=== PATIENT | female | born 1955 | race Caucasian/White ===

== ENCOUNTER 2024-04-11 13:27 | Inpatient (IN) | payer OTHER ==
[~2024-04-11] VITALS: Ht 165.1 cm; Wt 127.0 kg
[2024-04-11 13:40] VITALS: BP 167/80; PULSE 133; RESP 24; TEMP 97.3; O2SAT 96
[2024-04-11 13:46] LABS: EOSINOPHILS % (AUTO) 0.1 % (0.0-4.0); HEMATOCRIT 37.8 % (36-48); HEMOGLOBIN 12.8 g/dL (12.0-16.0); LYMPHOCYTES # (AUTO) 0.4 K/uL (2.5-16.5); LYMPHOCYTES % (AUTO) 2.6 % (20.5-51.1); MEAN CORPUSCULAR HEMOGLOBIN 33 pg (27-31); MEAN CORPUSCULAR HGB CONC 34 g/dL (33-37); MEAN CORPUSCULAR VOLUME 97.7 fL (80-94); MONOCYTES # (AUTO) 0.7 K/uL (0.8-1.0); MONOCYTES % (AUTO) 4.3 % (1.7-9.3); NEUTROPHILS # (AUTO) 16.1 K/uL (1.8-7.7); PLATELET COUNT (AUTO) 81 K/uL (140-450); RED BLOOD CELL COUNT(AUTO) 3.87 MIL/uL (4.20-5.40); RED CELL DISTRIBUTION WIDTH 15.6 % (11.6-13.7); WHITE BLOOD COUNT (AUTO) 17.3 K/uL (4.8-10.8)
[2024-04-11] MEDS: ONDANSETRON 4 MG/2 ML VIAL IVP ONE (13:50)
[2024-04-11 14:01] LABS: ANION GAP 15.4 (8-16); CALCIUM 8.8 mg/dL (8.5-10.1); CREATININE 1.3 mg/dL (0.6-1.3); POTASSIUM 4.4 mmol/L (3.5-5.1)
[2024-04-11 14:10] LABS: ALANINE AMINOTRANSFERASE 28 U/L (12-78); ALKALINE PHOSPHATASE 83 U/L (50-136); ASPARTATE AMINOTRANSFERASE 53 U/L (15-37); BILIRUBIN,DIRECT 0.7 mg/dL (0.0-0.3); TOTAL BILIRUBIN 1.9 mg/dL (0.0-1.0); TOTAL PROTEIN, SERUM 7.8 g/dL (6.4-8.2)
[2024-04-11 14:12] LABS: INR 1.17 (0.8-1.2); PARTIAL THROMBOPLASTIN TIME 28.2 secs (22-35.6); PROTHROMBIN TIME 12.2 secs (10.8-13.4)
[2024-04-11] MEDS ORDERED: VANCOMYCIN 1,000 MG VIAL ONE (14:34)
[2024-04-11 14:41] LABS: LACTIC ACID 3.5 mmol/L (0.4-2.0)
[2024-04-11] MEDS: LORazepam 2 MG/ML VIAL IVP ONE (14:42)
[2024-04-11] MEDS: MORPHINE SULFATE 4 MG/ML SYR IVP ONE (14:44)
[2024-04-11] MEDS: NACL 0.9% 1,000 ML IV SCH ×2 (14:47→15:20)
[2024-04-11 14:51] LABS: APPEARANCE,URINE CLEAR (CLEAR); BILIRUBIN,URINE NEGATIVE (NEGATIVE); BLOOD, URINE NEGATIVE (NEGATIVE); COLOR,URINE YELLOW (YELLOW); LEUKOCYTE ESTERASE ,URINE 1+ (NEGATIVE); NITRITE, URINE NEGATIVE (NEGATIVE); PROTEIN,URINE 1+ (NEGATIVE); UGLUCOSE NEGATIVE (NEGATIVE); UROBILINOGEN,URINE 0.2 EU/dL (0.2 - 1)
[2024-04-11] MEDS: VANCOMYCIN 1,000 MG in DEXTROSE 5% 250 ML IV ONE (15:03)
[2024-04-11 15:13] LABS: FLU A ANTIGEN negative (NEGATIVE); FLU B ANTIGEN NEGATIVE (NEGATIVE)
[2024-04-11 15:15] LABS: BACTERIA,URINE FEW /HPF (None Seen); RBC,URINE 0-5 /HPF (0-5)
[2024-04-11] MEDS ORDERED: ONDANSETRON 4 MG/2 ML VIAL IVP PRN (15:20)
[2024-04-11 19:00] VITALS: PULSE 95; RESP 18; O2SAT 94
[2024-04-11 20:00] VITALS: BP 112/55; PULSE 95; PULSE 96; RESP 18; TEMP 98.8; O2SAT 94
[2024-04-12] VITALS: BP 128/70; PULSE 81; PULSE 89; RESP 18; TEMP 97.1; O2SAT 97
[2024-04-12 04:00] VITALS: BP 141/60; PULSE 82; PULSE 96; RESP 18; TEMP 98.3; O2SAT 97
[2024-04-12] MEDS: VANCOMYCIN 1GM/DEXT 5% PREMIX 200 ML IV ONE (04:45)
[2024-04-12 06:42] LABS: BASOPHILS % (AUTO) 0.2 % (0.0-2.0); HEMATOCRIT 34.2 % (36-48); HEMOGLOBIN 11.7 g/dL (12.0-16.0); LYMPHOCYTES % (AUTO) 6.7 % (20.5-51.1); MEAN CORPUSCULAR HEMOGLOBIN 34 pg (27-31); MEAN CORPUSCULAR HGB CONC 34 g/dL (33-37); MEAN CORPUSCULAR VOLUME 98.7 fL (80-94); MONOCYTES # (AUTO) 0.8 K/uL (0.8-1.0); MONOCYTES % (AUTO) 5.4 % (1.7-9.3); NEUTROPHILS # (AUTO) 13.7 K/uL (1.8-7.7); NEUTROPHILS % (AUTO) 87.7 % (42.2-75.2); PLATELET COUNT (AUTO) 79 K/uL (140-450); RED BLOOD CELL COUNT(AUTO) 3.47 MIL/uL (4.20-5.40); RED CELL DISTRIBUTION WIDTH 15.5 % (11.6-13.7); WHITE BLOOD COUNT (AUTO) 15.6 K/uL (4.8-10.8)
[2024-04-12 06:43] LABS: ALBUMIN 2.5 g/dL (3.4-5.0); ANION GAP 14.3 (8-16); CALCIUM 8.2 mg/dL (8.5-10.1); CREATININE 1.2 mg/dL (0.6-1.3); POTASSIUM 4.3 mmol/L (3.5-5.1); TOTAL BILIRUBIN 1.8 mg/dL (0.0-1.0); TOTAL PROTEIN, SERUM 6.7 g/dL (6.4-8.2)
[2024-04-12 08:00] VITALS: BP 119/40; PULSE 72; PULSE 74; RESP 18; TEMP 97.1; O2SAT 98
[2024-04-12] MEDS: DOCUSATE SODIUM 100 MG GELCAP PO SCH (09:49)
[2024-04-12] MEDS: PANTOPRAZOLE 40 MG INJ VIAL IVP SCH (09:49)
[2024-04-12] MEDS: HYDROcodone/APAP 5/325 MG 1 TAB TAB PO PRN (11:11)
[2024-04-12 12:00] VITALS: BP 125/39; PULSE 80; RESP 18; TEMP 97.2; O2SAT 96
[2024-04-12 16:00] VITALS: BP 116/50; PULSE 76; PULSE 85; RESP 18; TEMP 98; O2SAT 97
[2024-04-12 20:00] VITALS: BP 138/53; PULSE 74; PULSE 84; PULSE 88; RESP 18; RESP 19; TEMP 98.6; O2SAT 95
[2024-04-12] MEDS ORDERED: VANCOMYCIN PER PHARMACY MC PRN (23:05)
[2024-04-12] MEDS: ZOLPIDEM 5 MG TAB PO PRN (23:07)
[2024-04-12] MEDS ORDERED: DEXTROSE 50% 50 ML SYR IVP PRN (23:10)
[2024-04-12] MEDS ORDERED: INSULIN LISPRO SLIDING SCALE 100 UNITS/ML VIAL SUBQ PRN (23:10)
[2024-04-13] VITALS: BP 137/57; PULSE 76; PULSE 82; RESP 18; TEMP 98.5; O2SAT 94
[2024-04-13] MEDS: cefTRIAXone 1,000 MG VIAL ONE (03:13)
[2024-04-13 04:00] VITALS: BP 157/72; PULSE 83; RESP 19; TEMP 98; O2SAT 95
[2024-04-13] MEDS: VANCOMYCIN 1,000 MG VIAL ONE (04:45)
[2024-04-13 05:27] LABS: BASOPHILS % (AUTO) 0.3 % (0.0-2.0); EOSINOPHILS # (AUTO) 0.1 K/uL (0-0.4); EOSINOPHILS % (AUTO) 1.4 % (0.0-4.0); HEMOGLOBIN 11.3 g/dL (12.0-16.0); LYMPHOCYTES % (AUTO) 13.2 % (20.5-51.1); MEAN CORPUSCULAR HEMOGLOBIN 34 pg (27-31); MEAN CORPUSCULAR HGB CONC 34 g/dL (33-37); MEAN CORPUSCULAR VOLUME 99.1 fL (80-94); MONOCYTES # (AUTO) 0.6 K/uL (0.8-1.0); MONOCYTES % (AUTO) 8.1 % (1.7-9.3); NEUTROPHILS # (AUTO) 5.9 K/uL (1.8-7.7); PLATELET COUNT (AUTO) 72 K/uL (140-450); RED BLOOD CELL COUNT(AUTO) 3.33 MIL/uL (4.20-5.40); RED CELL DISTRIBUTION WIDTH 15.6 % (11.6-13.7); WHITE BLOOD COUNT (AUTO) 7.7 K/uL (4.8-10.8)
[2024-04-13 06:30] LABS: ALBUMIN 2.4 g/dL (3.4-5.0); ANION GAP 12.7 (8-16); CALCIUM 8.2 mg/dL (8.5-10.1); CARBON DIOXIDE 24.2 mmol/L (21-32); CREATININE 1.1 mg/dL (0.6-1.3); POTASSIUM 3.9 mmol/L (3.5-5.1); TOTAL BILIRUBIN 1.7 mg/dL (0.0-1.0); TOTAL PROTEIN, SERUM 6.7 g/dL (6.4-8.2)
[2024-04-13] MEDS: BLOOD GLUCOSE MONITORING 1 DEV DEV FS SCH (06:37)
[2024-04-13 08:00] VITALS: BP 124/48; PULSE 70; PULSE 75; RESP 18; TEMP 97.2; O2SAT 94; O2SAT 98
[2024-04-13 12:00] VITALS: BP 116/52; PULSE 69; RESP 18; TEMP 97.6; O2SAT 93
[2024-04-13 16:00] VITALS: BP 154/69; PULSE 79; RESP 18; TEMP 97.9; O2SAT 96
[2024-04-13] MEDS ORDERED: NON ADHERENT DRESSING TP PRN (17:30)
[2024-04-13] MEDS: VANCOMYCIN 1.25GM PREMIX 250 ML IV SCH (17:45)
[2024-04-13 20:00] VITALS: BP 149/54; PULSE 77; RESP 18; TEMP 98; O2SAT 96
[2024-04-14 04:00] VITALS: BP 141/62; PULSE 84; RESP 18; TEMP 96.8; O2SAT 95
[2024-04-14 05:51] LABS: BASOPHILS % (AUTO) 0.3 % (0.0-2.0); EOSINOPHILS # (AUTO) 0.2 K/uL (0-0.4); EOSINOPHILS % (AUTO) 3.4 % (0.0-4.0); HEMATOCRIT 30.4 % (36-48); HEMOGLOBIN 10.6 g/dL (12.0-16.0); LYMPHOCYTES # (AUTO) 0.8 K/uL (2.5-16.5); LYMPHOCYTES % (AUTO) 18.2 % (20.5-51.1); MEAN CORPUSCULAR HEMOGLOBIN 34 pg (27-31); MEAN CORPUSCULAR HGB CONC 35 g/dL (33-37); MEAN CORPUSCULAR VOLUME 97.5 fL (80-94); MONOCYTES # (AUTO) 0.5 K/uL (0.8-1.0); MONOCYTES % (AUTO) 10.6 % (1.7-9.3); NEUTROPHILS % (AUTO) 67.5 % (42.2-75.2); PLATELET COUNT (AUTO) 83 K/uL (140-450); RED BLOOD CELL COUNT(AUTO) 3.12 MIL/uL (4.20-5.40); RED CELL DISTRIBUTION WIDTH 15.4 % (11.6-13.7); WHITE BLOOD COUNT (AUTO) 4.4 K/uL (4.8-10.8)
[2024-04-14 06:10] LABS: ALBUMIN 2.3 g/dL (3.4-5.0); ANION GAP 13.3 (8-16); CALCIUM 8.1 mg/dL (8.5-10.1); CARBON DIOXIDE 22.6 mmol/L (21-32); CREATININE 0.9 mg/dL (0.6-1.3); POTASSIUM 3.9 mmol/L (3.5-5.1); TOTAL BILIRUBIN 1.1 mg/dL (0.0-1.0); TOTAL PROTEIN, SERUM 6.6 g/dL (6.4-8.2)
[2024-04-14 08:00] VITALS: BP 123/52; PULSE 73; RESP 18; TEMP 98.2; O2SAT 94; O2SAT 96
[2024-04-14] MEDS: GABAPENTIN 100 MG CAP PO SCH (09:58)
[2024-04-14 12:00] VITALS: BP 124/67; PULSE 84; RESP 18; TEMP 97.5; O2SAT 95
[2024-04-14] MEDS: NON ADHERENT DRESSING TP SCH (13:00)
[2024-04-14 16:00] VITALS: BP 140/67; PULSE 84; RESP 18; TEMP 98.2; O2SAT 95
[2024-04-14] MEDS: Z-GUARD PASTE TP ONE (16:54)
[2024-04-14 20:00] VITALS: BP 134/55; PULSE 86; RESP 18; TEMP 97.7; O2SAT 96
[2024-04-14] MEDS: cefTAZidime 2,000 MG in DEXTROSE 5% 100 ML IV SCH (21:35)
[2024-04-14] MEDS: cefTRIAXone 2,000 MG VIAL ONE (22:33)
[2024-04-15 04:00] VITALS: BP 152/67; PULSE 78; RESP 18; TEMP 96.8; O2SAT 96
[2024-04-15 05:11] LABS: BASOPHILS % (AUTO) 0.3 % (0.0-2.0); EOSINOPHILS # (AUTO) 0.2 K/uL (0-0.4); EOSINOPHILS % (AUTO) 4.5 % (0.0-4.0); HEMATOCRIT 30.2 % (36-48); HEMOGLOBIN 10.5 g/dL (12.0-16.0); LYMPHOCYTES # (AUTO) 0.7 K/uL (2.5-16.5); LYMPHOCYTES % (AUTO) 19.9 % (20.5-51.1); MEAN CORPUSCULAR HEMOGLOBIN 34 pg (27-31); MEAN CORPUSCULAR HGB CONC 35 g/dL (33-37); MEAN CORPUSCULAR VOLUME 97.3 fL (80-94); MONOCYTES # (AUTO) 0.5 K/uL (0.8-1.0); MONOCYTES % (AUTO) 14.4 % (1.7-9.3); NEUTROPHILS # (AUTO) 2.3 K/uL (1.8-7.7); NEUTROPHILS % (AUTO) 60.9 % (42.2-75.2); PLATELET COUNT (AUTO) 91 K/uL (140-450); WHITE BLOOD COUNT (AUTO) 3.7 K/uL (4.8-10.8)
[2024-04-15 05:47] LABS: ALBUMIN 2.2 g/dL (3.4-5.0); ANION GAP 13.1 (8-16); CARBON DIOXIDE 21.8 mmol/L (21-32); CREATININE 0.8 mg/dL (0.6-1.3); POTASSIUM 3.9 mmol/L (3.5-5.1); TOTAL PROTEIN, SERUM 6.3 g/dL (6.4-8.2)
[2024-04-15 07:05] LABS: FREE T4 (FREE THYROXINE) 1.45 ng/dL (0.76-1.46); THYROID STIMULATING HORMONE 3.09 uIU/mL (0.34-3.74)
[2024-04-15 08:00] VITALS: BP 157/62; PULSE 74; RESP 18; TEMP 97.9; O2SAT 93
[2024-04-15 08:48] LABS: APPEARANCE,URINE CLEAR (CLEAR); BILIRUBIN,URINE NEGATIVE (NEGATIVE); BLOOD, URINE NEGATIVE (NEGATIVE); COLOR,URINE YELLOW (YELLOW); LEUKOCYTE ESTERASE ,URINE NEGATIVE (NEGATIVE); NITRITE, URINE NEGATIVE (NEGATIVE); PROTEIN,URINE NEGATIVE (NEGATIVE); UGLUCOSE NEGATIVE (NEGATIVE); UROBILINOGEN,URINE 0.2 EU/dL (0.2 - 1)
[2024-04-15 16:00] VITALS: BP 159/74; PULSE 87; RESP 18; TEMP 98.9; O2SAT 96
[2024-04-15 20:00] VITALS: BP 155/61; PULSE 73; RESP 18; TEMP 97.7; O2SAT 96
[2024-04-15] MEDS: LORazepam 1 MG TAB PO PRN (22:28)
[2024-04-16 04:00] VITALS: BP 123/59; PULSE 75; RESP 18; TEMP 97.4; O2SAT 94
[2024-04-16 06:11] LABS: BASOPHILS % (AUTO) 0.4 % (0.0-2.0); EOSINOPHILS # (AUTO) 0.2 K/uL (0-0.4); EOSINOPHILS % (AUTO) 5.1 % (0.0-4.0); HEMATOCRIT 30.2 % (36-48); HEMOGLOBIN 10.4 g/dL (12.0-16.0); LYMPHOCYTES # (AUTO) 0.9 K/uL (2.5-16.5); LYMPHOCYTES % (AUTO) 19.6 % (20.5-51.1); MEAN CORPUSCULAR HEMOGLOBIN 34 pg (27-31); MEAN CORPUSCULAR HGB CONC 35 g/dL (33-37); MEAN CORPUSCULAR VOLUME 97.8 fL (80-94); MONOCYTES # (AUTO) 0.7 K/uL (0.8-1.0); MONOCYTES % (AUTO) 15.4 % (1.7-9.3); NEUTROPHILS # (AUTO) 2.6 K/uL (1.8-7.7); NEUTROPHILS % (AUTO) 59.5 % (42.2-75.2); PLATELET COUNT (AUTO) 100 K/uL (140-450); RED BLOOD CELL COUNT(AUTO) 3.08 MIL/uL (4.20-5.40); RED CELL DISTRIBUTION WIDTH 14.9 % (11.6-13.7)
[2024-04-16 06:17] LABS: WHITE BLOOD COUNT (AUTO) 4.4 K/uL (4.8-10.8)
[2024-04-16 06:27] LABS: ALBUMIN 2.1 g/dL (3.4-5.0); ANION GAP 12.4 (8-16); CARBON DIOXIDE 22.5 mmol/L (21-32); CREATININE 0.8 mg/dL (0.6-1.3); POTASSIUM 3.9 mmol/L (3.5-5.1); TOTAL BILIRUBIN 0.6 mg/dL (0.0-1.0); TOTAL PROTEIN, SERUM 6.2 g/dL (6.4-8.2)
[2024-04-16 08:00] VITALS: BP 123/67; PULSE 87; RESP 18; TEMP 97.7; O2SAT 96
[2024-04-16 16:00] VITALS: BP 147/71; PULSE 78; RESP 20; TEMP 98.1; O2SAT 97
[2024-04-16] MEDS ORDERED: COMMUNICATION ORDER MC PRN (16:00)
[2024-04-16] MEDS ORDERED: ALBUTEROL HFA MDI 90 MCG/ACTUATION 8 GM INH PRN ×2 (17:45→17:50)
[2024-04-16] MEDS ORDERED: ALBUTEROL 2 MG/5 ML ORASYR GT SCH (17:45)
[2024-04-16 20:00] VITALS: BP 170/79; PULSE 78; PULSE 90; RESP 20; TEMP 98.1; O2SAT 97
[2024-04-16] MEDS: MELATONIN 3 MG TAB PO PRN (22:32)
[2024-04-16] MEDS: hydrALAZINE 20 MG/ML VIAL IVP PRN (22:49)
[2024-04-17 04:00] VITALS: BP 141/77; PULSE 95; RESP 19; TEMP 97.2; O2SAT 94
[2024-04-17 06:05] LABS: BASOPHILS % (AUTO) 0.3 % (0.0-2.0); EOSINOPHILS # (AUTO) 0.2 K/uL (0-0.4); EOSINOPHILS % (AUTO) 4.5 % (0.0-4.0); HEMATOCRIT 30.8 % (36-48); HEMOGLOBIN 10.7 g/dL (12.0-16.0); LYMPHOCYTES # (AUTO) 0.8 K/uL (2.5-16.5); LYMPHOCYTES % (AUTO) 20.8 % (20.5-51.1); MEAN CORPUSCULAR HEMOGLOBIN 34 pg (27-31); MEAN CORPUSCULAR HGB CONC 35 g/dL (33-37); MONOCYTES # (AUTO) 0.6 K/uL (0.8-1.0); MONOCYTES % (AUTO) 15.5 % (1.7-9.3); NEUTROPHILS # (AUTO) 2.3 K/uL (1.8-7.7); NEUTROPHILS % (AUTO) 58.9 % (42.2-75.2); PLATELET COUNT (AUTO) 97 K/uL (140-450); RED BLOOD CELL COUNT(AUTO) 3.17 MIL/uL (4.20-5.40); RED CELL DISTRIBUTION WIDTH 15.1 % (11.6-13.7)
[2024-04-17 06:06] LABS: WHITE BLOOD COUNT (AUTO) 3.9 K/uL (4.8-10.8)
[2024-04-17 07:21] LABS: ALBUMIN 2.3 g/dL (3.4-5.0); ANION GAP 13.9 (8-16); CALCIUM 8.2 mg/dL (8.5-10.1); CARBON DIOXIDE 21.7 mmol/L (21-32); CREATININE 0.9 mg/dL (0.6-1.3); POTASSIUM 3.6 mmol/L (3.5-5.1); TOTAL BILIRUBIN 0.6 mg/dL (0.0-1.0); TOTAL PROTEIN, SERUM 6.6 g/dL (6.4-8.2)
[2024-04-17 08:00] VITALS: BP 142/72; PULSE 74; RESP 19; TEMP 97.8; O2SAT 98
[2024-04-17] MEDS: ALBUTEROL 0.083% 2.5 MG/3 ML NEBU INH PRN (09:28)
[2024-04-17 09:32] VITALS: PULSE 88; RESP 19; O2SAT 96
[2024-04-17 12:47] VITALS: PULSE 87; RESP 20; O2SAT 96
[2024-04-17 16:00] VITALS: BP 142/72; PULSE 87; RESP 20; TEMP 97.8; O2SAT 96
[2024-04-17 20:00] VITALS: BP 138/57; PULSE 73; PULSE 87; RESP 19; RESP 20; TEMP 96.9; O2SAT 96
[2024-04-18] VITALS (7 sets, daily range): BP systolic 116–154; BP diastolic 51–78; PULSE 73–91; RESP 18–20; TEMP 96.9–98.9; O2SAT 95–100
[2024-04-18 05:51] LABS: BASOPHILS % (AUTO) 0.4 % (0.0-2.0); EOSINOPHILS # (AUTO) 0.2 K/uL (0-0.4); HEMATOCRIT 31.4 % (36-48); HEMOGLOBIN 10.9 g/dL (12.0-16.0); LYMPHOCYTES % (AUTO) 25.9 % (20.5-51.1); MEAN CORPUSCULAR HEMOGLOBIN 34 pg (27-31); MEAN CORPUSCULAR HGB CONC 35 g/dL (33-37); MEAN CORPUSCULAR VOLUME 97.4 fL (80-94); MONOCYTES # (AUTO) 0.6 K/uL (0.8-1.0); MONOCYTES % (AUTO) 16.2 % (1.7-9.3); NEUTROPHILS # (AUTO) 2.1 K/uL (1.8-7.7); NEUTROPHILS % (AUTO) 51.5 % (42.2-75.2); PLATELET COUNT (AUTO) 108 K/uL (140-450); RED BLOOD CELL COUNT(AUTO) 3.23 MIL/uL (4.20-5.40); RED CELL DISTRIBUTION WIDTH 15.2 % (11.6-13.7)
[2024-04-18 06:46] LABS: ALBUMIN 2.3 g/dL (3.4-5.0); ANION GAP 13.3 (8-16); CARBON DIOXIDE 23.5 mmol/L (21-32); CREATININE 0.8 mg/dL (0.6-1.3); POTASSIUM 3.8 mmol/L (3.5-5.1); TOTAL BILIRUBIN 0.7 mg/dL (0.0-1.0); TOTAL PROTEIN, SERUM 6.6 g/dL (6.4-8.2)
[2024-04-19] VITALS: BP 143/65; PULSE 77; RESP 18
[2024-04-19 04:00] VITALS: BP 117/47; PULSE 83; RESP 17; TEMP 98.3; O2SAT 95
[2024-04-19 05:39] LABS: BASOPHILS % (AUTO) 0.5 % (0.0-2.0); EOSINOPHILS # (AUTO) 0.3 K/uL (0-0.4); EOSINOPHILS % (AUTO) 6.9 % (0.0-4.0); HEMATOCRIT 30.3 % (36-48); HEMOGLOBIN 10.5 g/dL (12.0-16.0); LYMPHOCYTES # (AUTO) 0.9 K/uL (2.5-16.5); LYMPHOCYTES % (AUTO) 25.1 % (20.5-51.1); MEAN CORPUSCULAR HEMOGLOBIN 34 pg (27-31); MEAN CORPUSCULAR HGB CONC 35 g/dL (33-37); MEAN CORPUSCULAR VOLUME 97.6 fL (80-94); MONOCYTES # (AUTO) 0.6 K/uL (0.8-1.0); MONOCYTES % (AUTO) 16.7 % (1.7-9.3); NEUTROPHILS # (AUTO) 1.9 K/uL (1.8-7.7); NEUTROPHILS % (AUTO) 50.8 % (42.2-75.2); PLATELET COUNT (AUTO) 102 K/uL (140-450); RED BLOOD CELL COUNT(AUTO) 3.11 MIL/uL (4.20-5.40); RED CELL DISTRIBUTION WIDTH 15.5 % (11.6-13.7); WHITE BLOOD COUNT (AUTO) 3.7 K/uL (4.8-10.8)
[2024-04-19] MEDS ORDERED: ZOLPIDEM 5 MG TAB PO PRN (05:45)
[2024-04-19] MEDS: LORazepam 1 MG TAB PO PRN (06:03)
[2024-04-19 06:08] LABS: ALBUMIN 2.3 g/dL (3.4-5.0); ANION GAP 10.4 (8-16); CALCIUM 8.2 mg/dL (8.5-10.1); CARBON DIOXIDE 26.4 mmol/L (21-32); CREATININE 0.8 mg/dL (0.6-1.3); POTASSIUM 3.8 mmol/L (3.5-5.1); TOTAL BILIRUBIN 0.6 mg/dL (0.0-1.0); TOTAL PROTEIN, SERUM 6.3 g/dL (6.4-8.2)
[2024-04-19 08:00] VITALS: BP 136/43; PULSE 100; PULSE 65; RESP 18; TEMP 97.4; O2SAT 100; O2SAT 96
[2024-04-19 09:47] VITALS: PULSE 74; RESP 20; O2SAT 95
[2024-04-19] MEDS: HYDROcodone/APAP 5/325 MG 1 TAB TAB PO PRN (10:06)
[2024-04-19] MEDS ORDERED: ROC2I IV (14:27)
[2024-04-19 16:00] VITALS: BP 116/48; PULSE 93; RESP 18; TEMP 97.9; O2SAT 95
== END 2024-04-19 19:13 | disposition home health service (06) | DRG 871 ==
LOC: MED 13:27 → MTU 15:19
PROVIDERS: ADMIT Student in an Organized Health Care Education/Training Program; ATTEND Student in an Organized Health Care Education/Training Program
DX: A41.51 Sepsis due to Escherichia coli [E. coli] (principal); G93.41 Metabolic encephalopathy; N39.0 Urinary tract infection, site not specified; Z68.42 Body mass index [BMI] 45.0-49.9, adult; L03.116 Cellulitis of left lower limb; L03.115 Cellulitis of right lower limb; E66.01 Morbid (severe) obesity due to excess calories; I11.0 Hypertensive heart disease with heart failure; I50.9 Heart failure, unspecified; Z20.822 Contact with and (suspected) exposure to COVID-19; R65.20 Severe sepsis without septic shock; E11.51 Type 2 diabetes mellitus with diabetic peripheral angiopathy without gangrene; Z88.0 Allergy status to penicillin; Z88.8 Allergy status to other drugs, medicaments and biological substances; Z91.018 Allergy to other foods; Z90.710 Acquired absence of both cervix and uterus
CPT/HCPCS: 36415; 70450; 71045; 80048; 80053; 80076; 80202; 81001; 81003; 82948; 83605; 83880; 84439; 84443; 84484; 85025; 85379; 85610; 85730; 87040; 87081; 87086; 87186; 93005; 93925; 93970; 94640; 96365; 96375; 97110; 97116; 97163-GP; 97530; 99285; C9113; J0360; J0696; J0713; J1815; J2060; J2270; J2405; J3370; J3372; J7060; J7613; Q0092